=== PATIENT | male | born 1940 | race Caucasian/White ===

== ENCOUNTER → 2021-02-19 09:10 | Outpatient (CLI) | payer OTHER, MEDICARE, SELFPAY ==
[2021-02-19 20:25] LABS: Alanine Aminotransferase 20 IU/L (<50); Albumin 4.2 g/dL (3.5-5.0); Albumin Globulin Ratio 1.4 (1.0-2.8); Alkaline Phosphatase 62 U/L (38-126); Aspartate Aminotransferase 36 IU/L (17-59); BUN Creatinine Ratio 22.8 (6-22); Bilirubin Total 0.6 mg/dL (0.2-1.3); Blood Urea Nitrogen 33 mg/dL (9-20); Calcium 9.2 mg/dL (8.4-10.2); Carbon Dioxide 26 mmol/L (22-32); Chloride 105 mmol/L (98-107); Cholesterol 216 mg/dL (140-199); Estimated Glomerular Filt Rate 46.7 mL/min (>60); Globulin 3.1 g/dL (1.7-4.1); Glucose 98 mg/dL (80-110); HDL Cholesterol 42 mg/dL (40-60); HEMOLYSIS < 15 (0-50); LDL Cholesterol Calculated 158 mg/dL (<100); Potassium 4.5 mmol/L (3.4-5.1); Sodium 139 mmol/L (137-145); Total Protein 7.3 g/dL (6.3-8.2); Triglycerides 82 mg/dL (35-150)
== END ==
PROVIDERS: Family Provider Family Medicine; PCP Physician Assistant; Visit Provider Physician Assistant
DX: E78.5 Hyperlipidemia, unspecified (principal)
CPT/HCPCS: 80053; 80061

== ENCOUNTER → 2021-07-22 09:50 | Outpatient (CLI) | payer MEDICARE, SELFPAY ==
[2021-07-22 21:25] LABS: COVID19 - ORCAS (NP or Nasal) Negative (Negative)
== END ==
PROVIDERS: Family Provider Family Medicine; PCP Physician Assistant; Visit Provider Family Medicine
DX: Z20.822 Contact with and (suspected) exposure to COVID-19 (principal)
CPT/HCPCS: C9803; U0003

== ENCOUNTER 2021-09-30 19:10 | Emergency (ER) | payer MEDICARE, SELFPAY ==
[2021-09-30 19:29] VITALS: BP 196/81; PULSE 67; RESP 18; TEMP 37.3; O2SAT 97
--- NOTE | 2021-09-30 20:15 | DI.RAD.S_ITS ---
PROCEDURE: XR ABDOMEN 1V INDICATIONS: constipation TECHNIQUE: One view of the abdomen acquired. COMPARISON: None. FINDINGS: Surgical changes and devices: None. Bowel: Prominent stool is seen in the colon and rectum. No dilated loops of small bowel identified. Soft tissues: No suspicious abdominal calcifications. Visualized solid organ contours appear normal in size. Bones: No suspicious bony lesions. IMPRESSION: Prominent stool in the colon. This suggests constipation. Dictated by: Darin Tomlinson M.D. on 09/30/2021 at 21:20 Approved by: Darin Tomlinson M.D. on 09/30/2021 at 21:21
--- NOTE | 2021-09-30 21:00 | ED.GENADULT ---
HPI - General Adult General Chief complaint: Abdominal Pain Stated complaint: Gastro Intestinal Issues,Sent From [employer] Time Seen by Provider: 09/30/21 20:15 Source: patient Mode of arrival: Ambulatory History of Present Illness HPI narrative: Patient is an 80-year-old male who stated that earlier today he was having problems urinating and also had issues with constipation. He went to go see his primary doctor. Had a urinary catheter placed and drained here in. He has never had issues like this in the past but does have history of prostate problems. The catheter was removed at the doctor's office however he was instructed to come to the emergency department for further evaluation. He states that since he had the catheter placed he has urinated. He also states that he has had a small bowel movement which seems to have improved his symptoms. He did use a suppository to help with this. No vomiting. No fevers. Related Data Previous Rx's Medication Instructions Recorded sertraline 100 mg tablet 200 mg PO DAILY #60 tab 07/03/21 allopurinol 300 mg tablet 300 mg PO QDAY #90 tab 07/04/21 doxazosin 8 mg tablet 8 mg PO HS #90 tab 07/04/21 finasteride 5 mg tablet 5 mg PO QDAY #90 tab 07/04/21 Allergies Allergy/AdvReac Type Severity Reaction Status Date / Time No Known Drug Allergies Allergy Verified 07/24/21 08:05 Review of Systems Constitutional Constitutional: Reports system reviewed and no additional complaints, except as documented Gastrointestinal Gastrointestinal: Reports as per HPI and Reports system reviewed and no additional complaints, except as documented Genitourinary Genitourinary: Reports system reviewed and no additional complaints, except as documented and Reports as per HPI Hematologic/Lymphatic On Anticoagulants: No Patient History Medical History BPH (benign prostatic hyperplasia) Gout History of cataract Social History Smoking Status: Never smoker Smoking Status: Never smoker Exam Initial Vital Signs Initial Vital Signs: Vital Signs Temperature 99.1 F 09/30/21 19:29 Pulse Rate 67 09/30/21 19:29 Respiratory Rate 18 09/30/21 19:29 Blood Pressure 196/81 H 09/30/21 19:29 Pulse Oximetry 97 12/27/21 19:29 Resp Effort & Inspection: normal respiratory effort Cardio Rate: regular rate GI Inspection: normal to inspection and non-distended Palpation: soft, No firm, No guarding and No tender Skin General: no rashes or lesions noted Neuro General: patient alert, patient awake and moves all extremities Extrem General: normal to inspection and capillary refill normal Psych Appearance: grossly normal Course Orders Ordered: ED Orders 09/30/21 20:15 XR abdomen 1V Stat Vital Signs Vital signs: Vital Signs - 8 hr 09/30/21 19:29 Temperature 99.1 F Pulse Rate 67 Respiratory Rate 18 Blood Pressure 196/81 H Pulse Oximetry 97 Medical Decision Making Imaging Data Abdominal x-ray: Radiologist's Impression: [address] [address] XRay Report Signed Patient: Nasim Bahena MR#: [id number] : 1940 Acct:[id number] Age/Sex: 80 / M Date of Service: 09/30/21 Loc: ED Accession Number: [id number] ?? Procedure: XR abdomen 1V Ordering Provider: Eben Cuellar D.O. PROCEDURE:? XR ABDOMEN 1V ? INDICATIONS:? constipation ? TECHNIQUE:? One view of the abdomen acquired.? ? COMPARISON:? None. ? FINDINGS:? ? Surgical changes and devices:? None.? ? Bowel:? Prominent stool is seen in the colon and rectum.? No dilated loops of small bowel identified. ? Soft tissues:? No suspicious abdominal calcifications.? Visualized solid organ contours appear normal in size.? ? Bones:? No suspicious bony lesions.? ? IMPRESSION:? Prominent stool in the colon.? This suggests constipation. ? ? Dictated by: Darin Tomlinson M.D. on 09/30/2021 at 21:20 ? ? Approved by: Darin Tomlinson M.D. on 09/30/2021 at 21:21? MDM Narrative Medical decision making narrative: Bladder scan here in the emergency department shows less than 50 cc. Patient has urinated since he had the catheter placed earlier today. He has also had a small bowel movement. His abdomen is soft. X-ray shows no overt signs obstruction does have findings consistent with constipation and that is consistent with when he presents with today. We did discuss the use of laxatives. We did discuss continuing to take his prostate medications. Will have him follow-up with his primary doctor as he may need a referral to see Urology. He was given return precautions. He expressed understanding and agreement. Discharge Plan Departure Patient Disposition: Home Clinical Impression: Constipation Instructions: DI for Constipation Activity Restrictions/Additional Instructions: I suspect that the issues that you are having today were related to the urinary retention. Urinary retention is most likely because of an enlarged prostate. Continue to take the finasteride. I also recommend [id number] laxative such as MiraLax or magnesium citrate. You can contact a urologist at the number provided below for a follow-up. Also contact your primary doctor for a follow-up. Return to the emergency department for any new or worsening symptoms Prescriptions: No Action sertraline 100 mg tablet 200 mg PO DAILY Qty: 60 1RF allopurinol 300 mg tablet 300 mg PO QDAY Qty: 90 1RF doxazosin 8 mg tablet 8 mg PO HS Qty: 90 1RF finasteride 5 mg tablet 5 mg PO QDAY Qty: 90 1RF ketorolac 15 mg/mL solution 15 mg IM ONCE Qty: 1 0RF Referrals: Lucas Barber MD [Physician] - Cristiana Jensen PA-C [Primary Care Provider] -
== END 2021-09-30 21:54 | disposition home or self-care (01) ==
PROVIDERS: Emergency Provider Emergency Medicine; Family Provider Family Medicine; PCP Physician Assistant
DX: K59.00 Constipation, unspecified (principal)
CPT/HCPCS: 51798; 74018; 99282; 99283

== ENCOUNTER → 2021-10-23 09:25 | Outpatient (CLI) | payer MEDICARE, SELFPAY ==
[2021-10-23 18:49] LABS: Add Manual Diff / Slide Review NO; Basophils Absolute Auto 0 /uL (0-100); Basophils Percent Auto 0.4 % (0-2); Eosinophils Absolute Auto 400 /uL (0-450); Eosinophils Percent Auto 5.8 % (2-4); Hematocrit 42.8 % (41-53); Hemoglobin 14.3 g/dL (13.5-17.5); Lymphocytes Absolute Auto 1100 /uL (1100-4500); Lymphocytes Percent Auto 17.4 % (25-40); Mean Corpuscular HGB Conc 33.3 % (30-36); Mean Corpuscular Hemoglobin 29.9 PG (26-34); Mean Corpuscular Volume 89.8 fL (80-100); Monocytes Absolute Auto 900 /uL (0-900); Monocytes Percent Auto 14.1 % (3-14); Neutrophils Absolute Auto 4000 /uL (1500-7000); Neutrophils Percent Auto 62.3 % (50-75); Red Blood Cell Count 4.77 X10^6/uL (4.5-5.9); Red Cell Distribution Width 15.2 % (11.6-14.8); White Blood Cell Count 6.4 X10^3/uL (4.5-11.0)
[2021-10-23 18:58] LABS: Alanine Aminotransferase 15 IU/L (<50); Albumin Globulin Ratio 1.3 (1.0-2.8); Alkaline Phosphatase 51 U/L (38-126); Aspartate Aminotransferase 28 IU/L (17-59); BUN Creatinine Ratio 20.9 (6-22); Bilirubin Total 0.6 mg/dL (0.2-1.3); Blood Urea Nitrogen 31 mg/dL (9-20); Calcium 9.5 mg/dL (8.4-10.2); Carbon Dioxide 30 mmol/L (22-32); Chloride 104 mmol/L (98-107); Estimated Glomerular Filt Rate 45.5 mL/min (>60); Glucose 88 mg/dL (80-110); HEMOLYSIS < 15 (0-50); Potassium 4.6 mmol/L (3.4-5.1); Sodium 140 mmol/L (137-145); Uric Acid 4.1 mg/dL (3.5-8.5)
== END ==
PROVIDERS: Family Provider Family Medicine; PCP Physician Assistant; Visit Provider Physician Assistant
DX: R21 Rash and other nonspecific skin eruption (principal)
CPT/HCPCS: 80053; 84550; 85025

== ENCOUNTER → 2021-11-11 08:12 | Outpatient (CLI) | payer MEDICARE, SELFPAY ==
[2021-11-11 20:45] LABS: COVID19 - ORCAS (NP or Nasal) Negative (Negative)
== END ==
PROVIDERS: Family Provider Family Medicine; PCP Physician Assistant; Visit Provider Physician Assistant
DX: Z20.822 Contact with and (suspected) exposure to COVID-19 (principal)
CPT/HCPCS: C9803; U0003

== ENCOUNTER 2021-11-12 08:54 | Day surgery (SDC) | payer MEDICARE, SELFPAY ==
[2021-11-12] MEDS: PROPARACAINE 0.5% OPHTH SOL 2 DROPS EYE-OP (10:26)
[2021-11-12 10:28] VITALS: BP 219/81; PULSE 87; RESP 16; TEMP 36.8; O2SAT 99; BMI 22.9
--- NOTE | 2021-11-12 11:20 | P.OP.PRE_ITS ---
Pre-operative Note Interval Note History & Physical reviewed/Exam performed by Physician: Yes Changes to H&P: No Addendum Addendum Note: There are no non surgical alternatives to the patient's condition. Deteriora tion of the patient's condition is expected. Delay in surgery may result in more complex future surgery.
--- NOTE | 2021-11-12 11:21 | PM.OP.1 ---
Operative Date/Time/Diagnoses Pre-op diagnosis: Nuclear cataract right eye Procedure & Clinicians Procedure: Cataract Surgery Same procedure as scheduled: Yes Surgeon: Justin Howell Anesthesia Type: MAC +/- and Sedation Operative Notes Procedure in detail: Patient brought to the operating suite. Tetracaine drops placed in the right eye. Patient was prepped and draped in sterile manner. Wire lid speculum was placed in the eye. Betadine drops were placed on the eye. This was irrigated. Lidocaine jelly was placed on the eye. A paracentesis port was created with a side-port blade. 0.1 mL 1% preservative free lidocaine was injected into the anterior chamber. The anterior chamber was deepened with viscoelastic. 2.6 mm keratome was used to create a temporal clear corneal incision. Cystotome and Utrata forceps were used to create continuous tear capsulorrhexis. Balanced salt solution was used to hydro dissect the nucleus. The phacoemulsification handpiece was inserted and the nucleus was removed using the stop and chop technique. The irrigation aspiration handpiece was inserted and the remaining cortex was removed. Anterior chamber was deepened with viscoelastic. An Pollard DIB00 intraocular lens with a power of 19.5 was injected into the capsular bag. Irrigation aspiration handpiece was inserted and the remaining viscoelastic was removed. Incision was hydrated with balanced salt solution and found to be leak free with pressure with Weck-Ofe sponges. 0.1 mL Vigamox injected anterior chamber. 0.3 mL Kenalog 10 mg was injected subconjunctivally. Lid speculum was removed. The patient left the operating room in excellent condition. Complications: none Post-operative Condition: stable Disposition: same day surgery
[2021-11-12] MEDS: MOXIFLOXACIN INJ 4 MG/0.8 ML VIAL 0.5 MG EYE-OP (11:53)
[2021-11-12] MEDS: PHENYLEPHRINE/LIDOCAINE VIAL (OR) 0.2 ML EYE-OP (11:53)
[2021-11-12] MEDS: HYALURONATE SODIUM 30 MG-10 MG/ML SYRINGES 1 BOX INTRAOCULA (11:53)
[2021-11-12] MEDS: LIDOCAINE 2% (GLYDO) 6 ML GEL TOP (11:54)
[2021-11-12] MEDS: TETRACAINE 0.5% OPHTH DROPS 4 ML 2 DROPS EYE-OP (11:54)
[2021-11-12] MEDS: TRIAMCINOLONE 50 MG/5 ML VIAL INJ (11:54)
[2021-11-12] MEDS: BALANCED SALT IRRIG SOLN NO.2 500 ML, EPINEPHrine 1 MG IRR (11:54)
[2021-11-12 12:17] VITALS: BP 174/72; PULSE 65; RESP 18; TEMP 36.7; O2SAT 98
== END 2021-11-12 12:45 | disposition home or self-care (01) ==
PROVIDERS: Family Provider Family Medicine; PCP Physician Assistant; Referring Provider Ophthalmology; Visit Provider Ophthalmology
PROC: (CPT 66984; principal; 2021-11-12 11:15)
DX: H25.11 Age-related nuclear cataract, right eye (principal)
CPT/HCPCS: 66984; J0171; J2250; J3301

== ENCOUNTER → 2023-03-11 11:22 | Outpatient (CLI) | payer MEDICARE, SELFPAY ==
[2023-03-11 19:49] LABS: Alanine Aminotransferase 19 IU/L (<50); Albumin 3.7 g/dL (3.5-5.0); Albumin Globulin Ratio 1.2 (1.0-2.8); Alkaline Phosphatase 56 U/L (38-126); Aspartate Aminotransferase 30 IU/L (17-59); BUN Creatinine Ratio 22.4 (6-22); Blood Urea Nitrogen 38 mg/dL (9-20); Calcium 8.8 mg/dL (8.4-10.2); Carbon Dioxide 27 mmol/L (22-32); Chloride 104 mmol/L (98-107); Estimated Glomerular Filt Rate 40 mL/min (>60); Glucose 87 mg/dL (80-110); HEMOLYSIS < 15 (0-50); Potassium 4.6 mmol/L (3.4-5.1); Sodium 136 mmol/L (137-145); Total Protein 6.7 g/dL (6.3-8.2)
== END ==
PROVIDERS: Family Provider Family Medicine; PCP Physician Assistant; Visit Provider Physician Assistant
DX: I10 Essential (primary) hypertension (principal); N18.30 Chronic kidney disease, stage 3 unspecified
CPT/HCPCS: 80053

== ENCOUNTER → 2024-04-12 12:09 | Outpatient (CLI) | payer MEDICARE, SELFPAY ==
[2024-04-12 19:32] LABS: Appearance Urine UA CLEAR; Bilirubin Urine UA NEGATIVE (NEGATIVE); Color Urine UA YELLOW; Glucose Urine UA NEGATIVE (Negative); Ketones Urine UA NEGATIVE (NEGATIVE); Leukocyte Esterase Urine UA NEGATIVE (NEGATIVE); Nitrite Urine UA NEGATIVE (Negative); Occult Blood Urine UA NEGATIVE (Negative); Protein Urine UA TRACE (Negative); Urobilinogen Urine UA 0.2 E.U./dL (0.2)
[2024-04-12 19:36] LABS: Urine Volume 10mL (spun)
[2024-04-12 19:38] LABS: Bacteria Urine Occasional (0-1); Culture Indicated Urine Cult Not Indicated; RBC Urine None Seen (0-5/HPF); Squamous Epithelial Cell Urine None Seen (0-5/HPF); WBC Urine None Seen (0-5/HPF)
== END ==
PROVIDERS: Family Provider Family Medicine; PCP Physician Assistant; Visit Provider Physician Assistant
DX: R33.9 Retention of urine, unspecified; N18.30 Chronic kidney disease, stage 3 unspecified
CPT/HCPCS: 81001

== ENCOUNTER → 2024-04-13 10:57 | Outpatient (CLI) | payer MEDICARE, SELFPAY ==
[2024-04-13 22:33] LABS: Alanine Aminotransferase 17 IU/L (<50); Albumin 3.7 g/dL (3.5-5.0); Albumin Globulin Ratio 1.2 (1.0-2.8); Alkaline Phosphatase 66 U/L (38-126); Aspartate Aminotransferase 29 IU/L (17-59); BUN Creatinine Ratio 27.8 (6-22); Bilirubin Total 0.9 mg/dL (0.2-1.3); Bilirubin Unconjugated 0.5 mg/dL (0.0-1.1); Blood Urea Nitrogen 45 mg/dL (9-20); Calcium 8.6 mg/dL (8.4-10.2); Carbon Dioxide 27 mmol/L (22-32); Chloride 106 mmol/L (98-107); Cholesterol 153 mg/dL (140-199); Estimated Glomerular Filt Rate 42 mL/min (>60); Glucose 97 mg/dL (80-110); HDL Cholesterol 38 mg/dL (40-60); HEMOLYSIS < 15 (0-50); LDL Cholesterol Calculated 99 mg/dL (<100); Potassium 4.3 mmol/L (3.4-5.1); Sodium 138 mmol/L (137-145); Total Protein 6.7 g/dL (6.3-8.2); Triglycerides 79 mg/dL (35-150)
[2024-04-13 22:48] LABS: Creatinine Urine Random 99.47 mg/dL
[2024-04-13 22:52] LABS: Hemoglobin A1C% w Est Avg Glu 5.1 % (4.0-6.0)
[2024-04-13 22:53] LABS: Microalbumin Urine Random 12.5 mg/dL (0-1.6)
[2024-04-13 23:01] LABS: Prostate Specific Antigen Scrn 3.23 ng/mL (0.1-4.0)
== END ==
PROVIDERS: Family Provider Family Medicine; PCP Physician Assistant; Visit Provider Physician Assistant
DX: Z12.5 Encounter for screening for malignant neoplasm of prostate (principal); Z12.11 Encounter for screening for malignant neoplasm of colon; Z13.1 Encounter for screening for diabetes mellitus; N18.30 Chronic kidney disease, stage 3 unspecified; I12.9 Hypertensive chronic kidney disease with stage 1 through stage 4 chronic kidney disease, or unspecified chronic kidney disease; Z79.899 Other long term (current) drug therapy
CPT/HCPCS: 80053; 80061; 80076; 82043; 82570; 83036; G0103

== ENCOUNTER → 2024-04-27 09:57 | Outpatient (CLI) | payer MEDICARE, SELFPAY ==
[2024-04-27 20:34] LABS: Cholesterol 154 mg/dL (140-199); HDL Cholesterol 40 mg/dL (40-60); LDL Cholesterol Calculated 97 mg/dL (<100); Triglycerides 84 mg/dL (35-150)
[2024-04-27 20:46] LABS: Add Manual Diff / Slide Review NO; Basophils Absolute Auto 0 /uL (0-100); Basophils Percent Auto 0.4 % (0-2); Eosinophils Absolute Auto 200 /uL (0-450); Eosinophils Percent Auto 2.6 % (2-4); Hematocrit 38.1 % (41-53); Hemoglobin 12.9 g/dL (13.5-17.5); Lymphocytes Absolute Auto 1800 /uL (1100-4500); Lymphocytes Percent Auto 26.3 % (25-40); Mean Corpuscular HGB Conc 33.9 % (30-36); Mean Corpuscular Hemoglobin 30.3 PG (26-34); Mean Corpuscular Volume 89.4 fL (80-100); Monocytes Absolute Auto 1000 /uL (0-900); Monocytes Percent Auto 14.5 % (3-14); Neutrophils Absolute Auto 3800 /uL (1500-7000); Neutrophils Percent Auto 56.2 % (50-75); Red Blood Cell Count 4.26 X10^6/uL (4.5-5.9); White Blood Cell Count 6.7 X10^3/uL (4.5-11.0)
[2024-04-27 21:04] LABS: TSH w/ Reflex to FT4 1.54 uIU/mL (0.47-4.68)
[2024-04-28 15:51] LABS: Hep C Virus Ab w/Reflex Quant NEGATIVE s/c (NEGATIVE)
== END ==
PROVIDERS: Family Provider Family Medicine; PCP Physician Assistant; Visit Provider Physician Assistant
DX: Z13.6 Encounter for screening for cardiovascular disorders (principal); Z11.59 Encounter for screening for other viral diseases; I10 Essential (primary) hypertension; Z79.899 Other long term (current) drug therapy
CPT/HCPCS: 80061; 84443; 85025; 86803

== ENCOUNTER → 2024-05-04 10:37 | Outpatient (CLI) | payer MEDICARE, SELFPAY | PROVIDERS: Family Provider Family Medicine; PCP Physician Assistant; Visit Provider Physician Assistant | DX: I10 Essential (primary) hypertension (principal); Z12.5 Encounter for screening for malignant neoplasm of prostate; Z12.11 Encounter for screening for malignant neoplasm of colon; Z13.1 Encounter for screening for diabetes mellitus; Z79.899 Other long term (current) drug therapy; N28.9 Disorder of kidney and ureter, unspecified | CPT/HCPCS: 82274 ==

== ENCOUNTER → 2024-05-17 14:00 | Outpatient (CLI) | payer MEDICARE, SELFPAY ==
[2024-05-17 21:04] LABS: Alanine Aminotransferase 19 IU/L (<50); Albumin 3.7 g/dL (3.5-5.0); Albumin Globulin Ratio 1.3 (1.0-2.8); Alkaline Phosphatase 55 U/L (38-126); Aspartate Aminotransferase 29 IU/L (17-59); Bilirubin Total 0.8 mg/dL (0.2-1.3); Blood Urea Nitrogen 38 mg/dL (9-20); Carbon Dioxide 28 mmol/L (22-32); Chloride 106 mmol/L (98-107); Estimated Glomerular Filt Rate 34 mL/min (>60); Globulin 2.9 g/dL (1.7-4.1); Glucose 133 mg/dL (80-110); HEMOLYSIS < 15 (0-50); Potassium 4.8 mmol/L (3.4-5.1); Sodium 137 mmol/L (137-145); Total Protein 6.6 g/dL (6.3-8.2)
[2024-05-17 21:14] LABS: Basophils Absolute Auto 0 /uL (0-100); Basophils Percent Auto 0.3 % (0-2); Eosinophils Absolute Auto 100 /uL (0-450); Eosinophils Percent Auto 1.7 % (2-4); Hematocrit 36.9 % (41-53); Hemoglobin 12.5 g/dL (13.5-17.5); Lymphocytes Absolute Auto 1400 /uL (1100-4500); Mean Corpuscular HGB Conc 33.9 % (30-36); Mean Corpuscular Hemoglobin 30.2 PG (26-34); Monocytes Absolute Auto 800 /uL (0-900); Monocytes Percent Auto 10.9 % (3-14); Neutrophils Absolute Auto 4600 /uL (1500-7000); Neutrophils Percent Auto 67.1 % (50-75); Red Blood Cell Count 4.14 X10^6/uL (4.5-5.9); Red Cell Distribution Width 14.8 % (11.6-14.8); White Blood Cell Count 6.9 X10^3/uL (4.5-11.0)
[2024-05-17 21:15] LABS: Add Manual Diff / Slide Review SLIDE REVIEW
[2024-05-17 21:50] LABS: Platelet Estimate Decr
[2024-05-17 21:51] LABS: RBC Morphology Normal Morphology
== END ==
PROVIDERS: Internal Medicine Interventional Cardiology; Family Provider Family Medicine; PCP Physician Assistant
DX: I35.0 Nonrheumatic aortic (valve) stenosis (principal)
CPT/HCPCS: 80053; 85025